=== PATIENT | female | born 1930 | race Caucasian/White ===

== ENCOUNTER 2016-03-24 16:17 | Emergency (ER) | payer OTHER ==
--- NOTE | 2016-03-24 17:49 | PROVIDER DOCUMENTATION ---
HPI-General Adult - General Chief Complaint: Fall Stated Complaint: FALL/RT SHOULDER PAIN Time Seen by Provider: 03/24/16 17:18 Allergies/Adverse Reactions: Patient Allergies Allergy/AdvReac Type Severity Reaction Status Date / Time No Known Allergies Allergy Verified 03/24/16 19:20 Home Medications: Aspirin [Aspir-Low] 81 mg PO QAM 03/24/16 Carbidopa [Lodosyn] 50 mg PO 5XDAY 03/24/16 Carbidopa/Levodopa [Carbidopa-Levo ER 50-200 Tab] 1 tab PO QHS 03/24/16 Cholecalciferol (Vitamin D3) [Vitamin D3] 1,000 unit PO QAM 03/24/16 Omeprazole [Prilosec] 20 mg PO DAILY@0700 03/24/16 Oxybutynin [Ditropan] 5 mg PO QHS 03/24/16 Vitamin E 400 unit PO DAILY 03/24/16 - History of Present Illness -Gen Adult Nature of Presenting Problems: A 86 y/o F with PMH of parkinsons and progressive dementia presented 2 days after fall at home described by daughter as tripped and fell while she was trying to get up to the table tripped her leg and fell on her right shoulder and hit her head, denies LOC, pt refused at that time coming to ED but to day daughter noted bruising on her left fore head and complained of right shoulder pain which prompted to bring her in to ED. On initial evaluation pt in no acute distress and complains of mild shoulder pain and headache Review of Systems - Adult - REVIEW OF SYSTEMS - ADULT Constitutional: reports: no symptoms reported Eyes: reports: no symptoms reported Ears, Nose, Mouth & Throat: reports: no symptoms reported Cardiovascular: reports: no symptoms reported Respiratory: reports: no symptoms reported Gastrointestinal: reports: no symptoms reported Genitourinary: reports: no symptoms reported Musculoskeletal: reports: see HPI Integumentary: reports: no symptoms reported Neurological: reports: see HPI Psychiatric: reports: no symptoms reported Endocrine: reports: no symptoms reported Hematologic/Lymphatic: reports: no symptoms reported Allergic/Immunologic: reports: no symptoms reported All Other Systems: Reviewed and Negative Past History - Adult - PAST MEDICAL HISTORY-ADULT Review of Records: reports: Old Records Reviewed, Nursing Assessment Review, Medications Reviewed, Social history reviewed & non-contributory. Major Childhood Illnesses: reports: denies history Cardiovascular: reports: denies history Respiratory: reports: denies history Gastrointestinal: reports: denies history Obstetrical/Gynecological: reports: denies history Genitourinary: reports: denies history Musculoskeletal: reports: denies history Neurological: reports: denies history Endocrine/Immune: reports: denies history Other Conditions: reports: denies history - FAMILY HISTORY Family History: reviewed, not pertinent Physical Exam-General - PHYSICAL EXAM-ADULT Initial Vital Signs Reviewed: Yes - CONSTITUTIONAL General Appearance: appears well, alert, no apparent distress - EYES Eyes: PERRL/EOMI, pink conjunctivae - HEAD, EARS, NOSE, MOUTH & THROAT HENMT: moist mucous membranes, normal ENT inspection, other (right temporal tenderness and mild bruising) - NECK Neck: non-tender, normal inspection - RESPIRATORY Respiratory: chest non-tender, lungs clear, normal breath sounds - CARDIOVASCULAR Cardiovascular: normal peripheral pulses, regular rate, rhythm, no edema - GASTROINTESTINAL (ABDOMEN) Abdominal Exam: normal bowel sounds, non tender, soft - LYMPHATIC Lymphatic: no adenopathy - MUSCULOSKELETAL Back Exam: normal inspection, no CVA tenderness, no vertebral tenderness Extremity: normal range of motion, non-tender, normal gait, tenderness (right shoulder pain) - SKIN Integumentary: normal color, normal turgor, warm/dry - NEUROLOGIC Neurologic: grossly normal, no motor/sensory deficits - PSYCHIATRIC Psych/Mental Status: normal mood/affect, normal thought content, normal thought process, oriented x 3 Progress - PLAN OF CARE/RESULTS Progress/Plan/Lab Results: Orders Category Date Time Status CERVICAL SPINE W/O CONTRAST [CT] Stat Exams 03/24/16 17:40 Taken CHEST-1 VIEW [RAD] Stat Exams 03/24/16 17:40 Taken ELBOW COMPLETE RIGHT [RAD] Stat Exams 03/24/16 17:40 Taken HEAD W/O CONTRAST [CT] Stat Exams 03/24/16 16:27 Taken SHOULDER-RIGHT [RAD] Stat Exams 03/24/16 17:40 Taken ED Follow Up Instructions: You have been treated by a care provider in the Emergency Department. These instructions are being provided to you so you can have an understanding of how to care for yourself upon discharge. Upon discharge from the Emergency Department, you are responsible for making arrangements for follow-up care by a physician of your choice. Take all prescribed medications as directed. Return to the Emergency Department immediately for any new or worsening symptoms. You may call the Physician Referral phone number at [phone] to obtain a list of Physicians who are taking new patients. - XRAY 1 XRAY Study: Shoulder Impression: See EMR Report (no acute fracture) 2 XRAY Study: Chest (no acute process) 3 XRAY: Right XRAY Study: Elbow (negative study) - CT/MRI 1 CT Study: Head Impression: See EMR Report MRI Study: C-Spine Impression: See EMR Report Departure - Departure Time of Disposition Order: 19:47 DIAGNOSIS: Contusion Qualifiers: Encounter type: initial encounter Contusion area: shoulder Laterality: right Qualified Code(s): S40.011A - Contusion of right shoulder, initial encounter Fall Qualifiers: Encounter type: initial encounter Qualified Code(s): W19.XXXA - Unspecified fall, initial encounter Disposition: HOME 01 Certified Medical Emergency: Emergent Condition: Good Referrals: None,PCP [Primary Care Provider] - Jack Troncoso MD [STAFF PHYSICIAN] - - Critical Care Note Comments: shoulder contusion no acute abnormality noted will d/c to follow up with PCP and orthopeadics take OTC pain meds as needed
[2016-03-24 19:44] VITALS: BP 119/58
--- NOTE | 2016-03-25 07:39 | Diag Imaging Result Document ---
PROCEDURE NAME: HEAD W/O CONTRAST - 03/24/2016 CT HEAD WITHOUT CONTRAST: A dose-reduction protocol was used. COMPARISON: No comparison exam. FINDINGS: There are generalized mild atrophic changes. There are mild chronic-appearing microvascular ischemic changes. 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 There is no indication of recent infarct, although acute infarcts may not be immediately visible. There is no evidence of intracranial hemorrhage, mass effect, or midline shift. There is no skull fracture. IMPRESSION: Atrophic changes and chronic ischemic changes. No evidence of intracranial injury. The on-call radiologist provided preliminary results at 5:32 p.m. on 03/24/2016.
--- NOTE | 2016-03-25 08:12 | Diag Imaging Result Document ---
PROCEDURE NAME: ELBOW COMPLETE RIGHT - 03/24/2016 RIGHT ELBOW, THREE VIEWS: FINDINGS: There is no evidence of acute fracture or dislocation and no evidence of effusion is present. IMPRESSION: No evidence of acute disease.
--- NOTE | 2016-03-25 08:13 | Diag Imaging Result Document ---
PROCEDURE NAME: SHOULDER-RIGHT - 03/24/2016 RIGHT SHOULDER THREE VIEWS: FINDINGS: There is fragmentation over the greater tuberosity. There are no previous studies and this may be a chronic finding. There is no evidence of dislocation. IMPRESSION: Possible old avulsion fracture of the greater tuberosity.
--- NOTE | 2016-03-25 08:16 | Diag Imaging Result Document ---
PROCEDURE NAME: CHEST-1 VIEW - 03/24/2016 AP CHEST: TIME: 1800 hours. FINDINGS: There are calcified breast implants bilaterally. There is no evidence of a pneumothorax or pleural fluid. The left costophrenic angle is somewhat obscured however. 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 There is an apparent compression fracture of T12 of uncertain age. The heart size is slightly enlarged. There may be some atelectasis in both lung bases. There is some deformity of the third, fourth, fifth, and sixth ribs on the left which may be due to old fractures. IMPRESSION: Osteopenia and multiple rib fractures and compression fracture of T12 which may be old. No previous studies. Bibasilar atelectasis and mild cardiomegaly.
--- NOTE | 2016-03-25 08:25 | Diag Imaging Result Document ---
PROCEDURE NAME: CERVICAL SPINE W/O CONTRAST - 03/24/2016 CT CERVICAL SPINE WITHOUT CONTRAST: TECHNIQUE: Axial and reformatted sagittal and coronal images are obtained. A dose reduction protocol was used. COMPARISON: No comparison exam. FINDINGS: The bones appear osteopenic. There are severe degenerative changes at the atlantoaxial articulation. There is degenerative disk disease which is most substantial at C5-6 and C6-7. There are substantial degenerative changes of multilevel facets. There is 3.6 mm anterolisthesis at C4-5. This may relate to abnormal mechanics associated with the C5-6 and C6-7 degenerative disk disease in combination with substantial degenerative changes of the C4-5 facets. There is no fracture identified. There is no precervical soft tissue swelling identified. There are atherosclerotic calcifications noted at the bilateral carotid bulb regions. IMPRESSION: 1. Possible osteopenia. Substantial multilevel degenerative disease. 2. 3.6 mm anterolisthesis at C4-5. This likely relates to the degenerative disease, as there is no associated fracture or precervical soft tissue swelling seen. Otherwise, there is no evidence of injury to the cervical spine. The on-call radiologist provided preliminary results at 7:08 p.m. on 03/24/2016.
== END 2016-03-24 20:23 | disposition home or self-care (01) ==
LOC: ED 16:17
DX: S40.011A Contusion of right shoulder, initial encounter (principal); S00.83XA Contusion of other part of head, initial encounter; M25.511 Pain in right shoulder; R51 Headache; M50.322 Other cervical disc degeneration at C5-C6 level; M50.323 Other cervical disc degeneration at C6-C7 level; G20 Parkinson's disease; F02.80 Dementia in other diseases classified elsewhere, unspecified severity, without behavioral disturbance, psychotic disturbance, mood disturbance, and anxiety; Z79.899 Other long term (current) drug therapy; Z79.82 Long term (current) use of aspirin; W01.0XXA Fall on same level from slipping, tripping and stumbling without subsequent striking against object, initial encounter
CPT/HCPCS: 70450; 71010; 72125